=== PATIENT | male | born 1950 | race Caucasian/White ===

== ENCOUNTER 2016-07-10 17:37 | Inpatient (IN) | payer MEDICARE, MEDICAID ==
[~2016-07-10] VITALS: Ht 167.6 cm; Wt 93.4 kg
[2016-07-10] MEDS ORDERED: SODIUM CHLORIDE FLUSH 10ML SYR IVF ONE (18:00)
[2016-07-10] MEDS ORDERED: ALBUTEROL/IPRATROPIUM 2.5MG/0.5MG, 3 ML NPPB ONE (18:00)
[2016-07-10] MEDS ORDERED: ALBUTEROL/IPRATROPIUM 2.5MG/0.5MG, 3 ML ONE (18:03)
[2016-07-10] MEDS ORDERED: ALBUTEROL SULFATE 2.5 MG/3 ML ONE (18:12)
[2016-07-10] MEDS ORDERED: ALBUTEROL SULFATE 2.5 MG/3 ML NPPB STA (18:23)
[2016-07-10 18:56] LABS: BLOOD UREA NITROGEN 15 mg/dL (7-18)
[2016-07-10] MEDS ORDERED: ALBUTEROL SULFATE 2.5 MG/3 ML NPPB ONE (19:00)
[2016-07-10] MEDS ORDERED: LORazepam 1MG TABLET PO ONE (19:00)
[2016-07-10] MEDS ORDERED: SODIUM CHLORIDE 0.9% 1,000ML IVBOLUS ONE (19:00)
[2016-07-10] MEDS ORDERED: LORazepam 1MG TABLET ONE (19:03)
[2016-07-10 19:04] LABS: IS PT STATUS REG ER OR PRE ER? YES
[2016-07-10] MEDS ORDERED: FLUT1DIS3 INH (19:12)
[2016-07-10] MEDS ORDERED: ALBU8.5H3 INH (19:12)
[2016-07-10] MEDS ORDERED: TIOT18CA INH (19:12)
[2016-07-10] MEDS ORDERED: MAGNESIUM SULFATE PMX 2GM/50ML 50 ML IV ONE (20:00)
[2016-07-10] MEDS ORDERED: SODIUM CHLORIDE 0.9% 1,000 ML IV SCH (20:46)
[2016-07-10] MEDS ORDERED: DOCUSATE 100 MG CAPSULE PO PRN (21:00)
[2016-07-10] MEDS ORDERED: BISACODYL 10 MG SUPP PR PRN (21:00)
[2016-07-10] MEDS ORDERED: GUAIFENESIN/DM 200-20MG, 10ML UDC PO PRN (21:00)
[2016-07-10] MEDS ORDERED: ACETAMINOPHEN 325 MG TABLET PO PRN (21:00)
[2016-07-10] MEDS ORDERED: TRAZODONE 50MG TABLET PO PRN (21:00)
[2016-07-10] MEDS ORDERED: ENALAPRILAT 1.25 MG/ML, 2ML IVPush PRN (21:00)
[2016-07-10] MEDS ORDERED: POLYETHYLENE GLYCOL 17 GM PACKET PO PRN (21:00)
[2016-07-10] MEDS: methylPREDNISolone SOD SUCC 125 MG/2 ML IVPush SCH (21:27)
[2016-07-10 22:14] VITALS: BP 153/90
[2016-07-10] MEDS: NICOTINE 14MG/24 HR PATCH.TD24 TD SCH (22:57)
[2016-07-10] MEDS: ENOXAPARIN 40 MG/0.4 ML SQ SCH (22:59)
[2016-07-11 00:38] VITALS: BP 158/88
[2016-07-11] MEDS: AZITHROMYCIN 500 MG in SODIUM CHLORIDE 0.9% 250 ML IV SCH (01:22)
[2016-07-11] MEDS: methylPREDNISolone SOD SUCC 125 MG/2 ML IVPush SCH ×4 (03:06→21:56)
[2016-07-11] MEDS: ALBUTEROL/IPRATROPIUM 2.5MG/0.5MG, 3 ML NPPB SCH ×5 (05:38→22:10)
[2016-07-11 06:24] LABS: ASPARTATE AMINO TRANSFERASE 28 U/L (15-37); BLOOD UREA NITROGEN 16 mg/dL (7-18)
[2016-07-11 07:15] VITALS: BP 152/88
[2016-07-11] MEDS: ALBUTEROL/IPRATROPIUM 2.5MG/0.5MG, 3 ML NPPB PRN ×2 (07:35→14:15)
[2016-07-11] MEDS: FOLIC ACID 1 MG TABLET PO SCH (08:54)
[2016-07-11] MEDS: THIAMINE 100MG TABLET PO SCH (08:54)
[2016-07-11 11:32] LABS: ABG COLLECTION SITE LEFT BRACHIAL; FIO2 34 %
[2016-07-11] MEDS: FLUTICASONE/VILANTEROL 200-25MCG/INH INH SCH (13:00)
[2016-07-11] MEDS: CEFTRIAXONE PMX 2GM/50ML 50 ML IV SCH (13:00)
[2016-07-11 13:02] VITALS: BP 157/84
[2016-07-11] MEDS: LORazepam 2 MG/ML, 1ML IVPush PRN ×2 (15:16→19:26)
[2016-07-11 19:14] VITALS: BP 144/78
[2016-07-11] MEDS: ENOXAPARIN 40 MG/0.4 ML SQ SCH (21:56)
[2016-07-11] MEDS: NICOTINE 14MG/24 HR PATCH.TD24 TD SCH (21:56)
[2016-07-12 01:48] VITALS: BP 144/83
[2016-07-12] MEDS: AZITHROMYCIN 500 MG in SODIUM CHLORIDE 0.9% 250 ML IV SCH (01:52)
[2016-07-12] MEDS: ALBUTEROL/IPRATROPIUM 2.5MG/0.5MG, 3 ML NPPB SCH ×6 (02:30→22:05)
[2016-07-12] MEDS: methylPREDNISolone SOD SUCC 125 MG/2 ML IVPush SCH ×4 (04:56→22:35)
[2016-07-12 07:17] VITALS: BP 156/100
[2016-07-12] MEDS: FLUTICASONE/VILANTEROL 200-25MCG/INH INH SCH (08:26)
[2016-07-12] MEDS: FOLIC ACID 1 MG TABLET PO SCH (08:26)
[2016-07-12] MEDS: THIAMINE 100MG TABLET PO SCH (08:26)
[2016-07-12] MEDS: LORazepam 2 MG/ML, 1ML IVPush PRN ×2 (08:26→14:44)
[2016-07-12] MEDS: CEFTRIAXONE PMX 2GM/50ML 50 ML IV SCH (12:28)
[2016-07-12 15:30] VITALS: BP 139/83
[2016-07-12 19:28] VITALS: BP 160/48
[2016-07-12] MEDS: ENOXAPARIN 40 MG/0.4 ML SQ SCH (22:35)
[2016-07-12] MEDS: NICOTINE 14MG/24 HR PATCH.TD24 TD SCH (22:37)
[2016-07-13 00:50] VITALS: BP 125/81
[2016-07-13] MEDS: AZITHROMYCIN 500 MG in SODIUM CHLORIDE 0.9% 250 ML IV SCH (01:20)
[2016-07-13] MEDS: methylPREDNISolone SOD SUCC 125 MG/2 ML IVPush SCH ×4 (04:07→22:18)
[2016-07-13] MEDS: LORazepam 2 MG/ML, 1ML IVPush PRN ×2 (04:17→09:13)
[2016-07-13 05:58] LABS: DIFF TOTAL CELLS COUNTED 100 CELL DIFF
[2016-07-13 05:59] LABS: VERIFY COUNTS? YES
[2016-07-13 06:00] LABS: BLOOD UREA NITROGEN 28 mg/dL (7-18)
[2016-07-13] MEDS: ALBUTEROL/IPRATROPIUM 2.5MG/0.5MG, 3 ML NPPB SCH ×5 (08:03→21:47)
[2016-07-13 08:45] VITALS: BP 159/77
[2016-07-13] MEDS: THIAMINE 100MG TABLET PO SCH (08:47)
[2016-07-13] MEDS: FOLIC ACID 1 MG TABLET PO SCH (08:48)
[2016-07-13] MEDS: FLUTICASONE/VILANTEROL 200-25MCG/INH INH SCH (08:49)
[2016-07-13] MEDS: CEFTRIAXONE PMX 2GM/50ML 50 ML IV SCH (12:36)
[2016-07-13 16:20] VITALS: BP 160/77
[2016-07-13 19:28] VITALS: BP 180/110
[2016-07-13 20:58] VITALS: BP 144/74
[2016-07-13] MEDS: ENOXAPARIN 40 MG/0.4 ML SQ SCH (22:19)
[2016-07-13] MEDS: NICOTINE 14MG/24 HR PATCH.TD24 TD SCH (22:27)
[2016-07-14 00:28] VITALS: BP 163/84
[2016-07-14] MEDS: ALBUTEROL/IPRATROPIUM 2.5MG/0.5MG, 3 ML NPPB SCH ×7 (01:10→23:39)
[2016-07-14] MEDS: AZITHROMYCIN 500 MG in SODIUM CHLORIDE 0.9% 250 ML IV SCH (01:55)
[2016-07-14] MEDS: methylPREDNISolone SOD SUCC 125 MG/2 ML IVPush SCH ×3 (03:58→17:09)
[2016-07-14 05:49] LABS: BLOOD UREA NITROGEN 29 mg/dL (7-18)
[2016-07-14 08:05] VITALS: BP 159/84
[2016-07-14] MEDS: THIAMINE 100MG TABLET PO SCH (08:53)
[2016-07-14] MEDS: FOLIC ACID 1 MG TABLET PO SCH (08:53)
[2016-07-14] MEDS: FLUTICASONE/VILANTEROL 200-25MCG/INH INH SCH (08:53)
[2016-07-14] MEDS: CEFTRIAXONE PMX 2GM/50ML 50 ML IV SCH (12:20)
[2016-07-14 12:37] VITALS: BP 153/85
[2016-07-14 20:25] VITALS: BP 161/92
[2016-07-14] MEDS: ENOXAPARIN 40 MG/0.4 ML SQ SCH (23:00)
[2016-07-15] MEDS: LORazepam 2 MG/ML, 1ML IVPush PRN (00:15)
[2016-07-15] MEDS: NICOTINE 14MG/24 HR PATCH.TD24 TD SCH (00:18)
[2016-07-15] MEDS: methylPREDNISolone SOD SUCC 125 MG/2 ML IVPush SCH ×2 (00:19→06:27)
[2016-07-15] MEDS: AZITHROMYCIN 500 MG in SODIUM CHLORIDE 0.9% 250 ML IV SCH (00:20)
[2016-07-15 02:00] VITALS: BP 137/78
[2016-07-15] MEDS: ALBUTEROL/IPRATROPIUM 2.5MG/0.5MG, 3 ML NPPB SCH ×2 (06:32→10:28)
[2016-07-15 07:08] VITALS: BP 124/77
[2016-07-15] MEDS: THIAMINE 100MG TABLET PO SCH (08:37)
[2016-07-15] MEDS: FLUTICASONE/VILANTEROL 200-25MCG/INH INH SCH (08:37)
== END 2016-07-15 12:06 | disposition left against medical advice (07) | DRG 189 ==
LOC: ED 19:50 → EDIP 20:17 → 4EST 21:32
PROVIDERS: ADMIT Internal Medicine
PROC: HZ34ZZZ Individual Counseling for Substance Abuse Treatment, Interpersonal (ICD-10-PCS; principal; 2016-07-10)
DX: J96.21 Acute and chronic respiratory failure with hypoxia (principal); J18.9 Pneumonia, unspecified organism; J44.0 Chronic obstructive pulmonary disease with (acute) lower respiratory infection; J44.1 Chronic obstructive pulmonary disease with (acute) exacerbation; F10.239 Alcohol dependence with withdrawal, unspecified; N40.0 Benign prostatic hyperplasia without lower urinary tract symptoms; F15.90 Other stimulant use, unspecified, uncomplicated; F17.210 Nicotine dependence, cigarettes, uncomplicated; F32.9 Major depressive disorder, single episode, unspecified; F40.240 Claustrophobia; R73.9 Hyperglycemia, unspecified; Z66 Do not resuscitate; Y90.9 Presence of alcohol in blood, level not specified; Z59.0 Homelessness; Z82.0 Family history of epilepsy and other diseases of the nervous system; Z82.5 Family history of asthma and other chronic lower respiratory diseases; Z90.81 Acquired absence of spleen; Z99.3 Dependence on wheelchair; Z88.5 Allergy status to narcotic agent; Z71.41 Alcohol abuse counseling and surveillance of alcoholic
CPT/HCPCS: 36415; 36600; 71010; 71020; 80048; 80053; 82040; 82803; 83735; 84439; 84443; 84484; 85025; 93005; 93306; 94640; 96361; 96374; J0456; J0696; J1650; J7620; J2060; J2930; J3475; J7030; J7050; J7512

== ENCOUNTER 2016-07-15 19:37 | Inpatient (IN) | payer MEDICARE, MEDICAID ==
[~2016-07-15] VITALS: Ht 170.2 cm; Wt 95.7 kg
[~2016-07-15 19:37] MED LIST: ALBU8.5H3 INH; FLUT1DIS3 INH; TIOT18CA INH
[2016-07-15] MEDS: ALBUTEROL/IPRATROPIUM 2.5MG/0.5MG, 3 ML NPPB SCH (20:28)
[2016-07-15] MEDS ORDERED: SODIUM CHLORIDE FLUSH 10ML SYR IVF ONE (20:30)
[2016-07-15] MEDS ORDERED: methylPREDNISolone SOD SUCC 125 MG/2 ML IVP ONE (20:30)
[2016-07-15] MEDS ORDERED: SODIUM CHLORIDE 0.9% 1,000ML IVBOLUS ONE (20:30)
[2016-07-15] MEDS ORDERED: methylPREDNISolone SOD SUCC 125 MG/2 ML ONE (20:47)
[2016-07-15 20:59] LABS: BLOOD UREA NITROGEN 26 mg/dL (7-18)
[2016-07-15 21:11] LABS: IS PT STATUS REG ER OR PRE ER? YES
[2016-07-15] MEDS ORDERED: AZITHROMYCIN 500 MG in SODIUM CHLORIDE 0.9% 250 ML IV ONE (21:30)
[2016-07-15 23:36] VITALS: BP 175/101
[2016-07-16] MEDS ORDERED: ONDANSETRON ODT 4 MG PO PRN
[2016-07-16] MEDS ORDERED: CEFTRIAXONE PMX 2GM/50ML 50 ML IV SCH
[2016-07-16] MEDS ORDERED: LABETALOL 5MG/ML, 20ML IV PRN
[2016-07-16] MEDS ORDERED: ALBUTEROL/IPRATROPIUM 2.5MG/0.5MG, 3 ML NPPB PRN (00:30)
[2016-07-16] MEDS: ENOXAPARIN 40 MG/0.4 ML SQ SCH (02:16)
[2016-07-16] MEDS: NICOTINE 7 MG/24 HR PATCH.TD24 TD SCH (02:16)
[2016-07-16] MEDS ORDERED: methylPREDNISolone SOD SUCC 125 MG/2 ML IVPush SCH (02:30)
[2016-07-16 02:31] VITALS: BP 150/75
[2016-07-16] MEDS: ALBUTEROL/IPRATROPIUM 2.5MG/0.5MG, 3 ML NPPB SCH ×6 (04:10→19:15)
[2016-07-16] MEDS ORDERED: LORazepam 2 MG/ML, 1ML IVPush ONE (04:30)
[2016-07-16 07:21] VITALS: BP 154/92
[2016-07-16] MEDS: SENNA/DOCUSATE TABLET PO SCH (08:31)
[2016-07-16] MEDS ORDERED: AZITHROMYCIN 500 MG TABLET PO SCH (09:00)
[2016-07-16 09:19] LABS: BLOOD UREA NITROGEN 29 mg/dL (7-18)
[2016-07-16] MEDS ORDERED: LORazepam 2 MG/ML, 1ML IV PRN ×4 (09:30)
[2016-07-16] MEDS ORDERED: LORazepam 1MG TABLET PO PRN ×4 (09:30)
[2016-07-16] MEDS ORDERED: LORazepam 0.5MG TABLET PO PRN (09:30)
[2016-07-16] MEDS: FOLIC ACID 1 MG TABLET PO SCH (10:18)
[2016-07-16] MEDS: THIAMINE 100MG TABLET PO SCH (10:18)
[2016-07-16] MEDS: CHLORDIAZEPOXIDE 25 MG CAPSULE PO SCH ×3 (10:18→22:20)
[2016-07-16] MEDS: MULTIVITAMINS/MINERALS TABLET PO SCH (10:18)
[2016-07-16 13:39] VITALS: BP 137/84
[2016-07-16 23:09] VITALS: BP 133/77
[2016-07-17] MEDS: NICOTINE 7 MG/24 HR PATCH.TD24 TD SCH (00:18)
[2016-07-17] MEDS: ENOXAPARIN 40 MG/0.4 ML SQ SCH (00:19)
[2016-07-17 02:00] VITALS: BP 153/93
[2016-07-17] MEDS: ALBUTEROL/IPRATROPIUM 2.5MG/0.5MG, 3 ML NPPB SCH ×3 (02:20→11:25)
[2016-07-17] MEDS: LORazepam 2 MG/ML, 1ML IV PRN ×2 (02:21→14:29)
[2016-07-17 08:41] LABS: BLOOD UREA NITROGEN 29 mg/dL (7-18)
[2016-07-17] MEDS: MULTIVITAMINS/MINERALS TABLET PO SCH (08:50)
[2016-07-17] MEDS: CHLORDIAZEPOXIDE 25 MG CAPSULE PO SCH (08:50)
[2016-07-17] MEDS: SENNA/DOCUSATE TABLET PO SCH (08:50)
[2016-07-17] MEDS: FOLIC ACID 1 MG TABLET PO SCH (08:50)
[2016-07-17] MEDS: THIAMINE 100MG TABLET PO SCH (08:50)
[2016-07-17 08:55] VITALS: BP 165/89
[2016-07-17 12:55] VITALS: BP 158/93
== END 2016-07-17 15:59 | disposition left against medical advice (07) | DRG 189 ==
LOC: ED 21:21 → 4WST 22:56
PROVIDERS: ADMIT Internal Medicine; ATTEND Internal Medicine
PROC: HZ34ZZZ Individual Counseling for Substance Abuse Treatment, Interpersonal (ICD-10-PCS; principal; 2016-07-15)
DX: J96.21 Acute and chronic respiratory failure with hypoxia (principal); J18.9 Pneumonia, unspecified organism; J44.1 Chronic obstructive pulmonary disease with (acute) exacerbation; J44.0 Chronic obstructive pulmonary disease with (acute) lower respiratory infection; F10.239 Alcohol dependence with withdrawal, unspecified; F10.229 Alcohol dependence with intoxication, unspecified; Z66 Do not resuscitate; I16.0 Hypertensive urgency; N40.0 Benign prostatic hyperplasia without lower urinary tract symptoms; Z88.6 Allergy status to analgesic agent; Z59.0 Homelessness; Z82.0 Family history of epilepsy and other diseases of the nervous system; Z90.81 Acquired absence of spleen; Z91.14 Patient's other noncompliance with medication regimen; Z81.1 Family history of alcohol abuse and dependence; Z71.6 Tobacco abuse counseling; Z99.3 Dependence on wheelchair; F17.210 Nicotine dependence, cigarettes, uncomplicated
CPT/HCPCS: 36415; 71010; 80048; 80307; 82040; 83735; 83880; 84100; 84484; 85025; 87040; 93005; 94640; 96365; 96375; J0456; J0696; J1650; J7620; J2060; J2930; J7030; J7050; J7512